=== PATIENT | male | born 1995 | race Caucasian/White ===

== ENCOUNTER 2021-06-29 07:17 | Emergency (ER) | payer OTHER ==
[~2021-06-29] VITALS: Ht 180.3 cm; Wt 74.8 kg
[2021-06-29] MEDS ORDERED: HYDR1TAB94 PO (08:15)
[2021-06-29] MEDS ORDERED: Crutch1 EACH XX (08:18)
== END 2021-06-29 09:10 | disposition home or self-care (01) ==
LOC: ER 07:17
DX: S92.351A Displaced fracture of fifth metatarsal bone, right foot, initial encounter for closed fracture (principal); F17.200 Nicotine dependence, unspecified, uncomplicated; X50.1XXA Overexertion from prolonged static or awkward postures, initial encounter
CPT/HCPCS: 29505; 73630; 99283-25; A9270

== ENCOUNTER 2021-12-18 23:21 | Emergency (ER) | payer OTHER ==
[~2021-12-18] VITALS: Ht 180.3 cm; Wt 74.8 kg
[~2021-12-18 23:21] MED LIST: Crutch1 EACH XX; HYDR1TAB94 PO
[2021-12-18] MEDS ORDERED: DOXY100 PO (23:48)
== END 2021-12-19 00:01 | disposition home or self-care (01) ==
LOC: ER 23:21
DX: A57 Chancroid (principal); F17.200 Nicotine dependence, unspecified, uncomplicated
CPT/HCPCS: 96372; 99283-25; A9270; J0696